=== PATIENT | female | born 1970 | race Hispanic/Latino ===

== ENCOUNTER → 2020-11-09 | Outpatient (CLI) | payer BC | END | disposition home or self-care (01) | LOC: LAB 12:20 → EEVIPCON 12:20 | DX: Z20.822 Contact with and (suspected) exposure to COVID-19 (principal) | CPT/HCPCS: 87635; C9803 ==

== ENCOUNTER 2022-04-26 07:16 | Day surgery (SDC) | payer BC ==
[~2022-04-26] VITALS: Ht 160 cm; Wt 68.0 kg
[~2022-04-26 07:16] MED LIST: ESTROGEN TP; PROGESTERONE PO
[2022-04-26] MEDS ORDERED: PROPOFOL 10 MG/ML 20ML VIAL IV ONE ×2 (07:22→07:38)
[2022-04-26] MEDS ORDERED: LIDOCAINE PF 100MG/5ML (2%) SYRINGE 5ML ONE (07:22)
[2022-04-26] MEDS ORDERED: MIDAZOLAM HCL 1 MG/ML 2ML VIAL ONE (07:22)
[2022-04-26] MEDS ORDERED: 0.9%NACL 1000ML 1,000 ML IV ONE (08:18)
[2022-04-26 08:22] VITALS: BP 130/85
[2022-04-26 08:27] VITALS: BP 99/55
[2022-04-26 08:31] VITALS: BP 98/62
[2022-04-26 08:36] VITALS: BP 96/56
[2022-04-26 08:41] VITALS: BP 99/63
[2022-04-26 08:46] VITALS: BP 96/82
== END 2022-04-26 08:50 | disposition home or self-care (01) ==
LOC: DAH 07:16
PROVIDERS: ATTEND Surgery
DX: K21.9 Gastro-esophageal reflux disease without esophagitis (principal); Z20.822 Contact with and (suspected) exposure to COVID-19; K31.7 Polyp of stomach and duodenum; K29.00 Acute gastritis without bleeding; Z79.899 Other long term (current) drug therapy
CPT/HCPCS: 87426; 84703; 36415; 43239; J7030 ×2; J2001; J2704 ×2; A4620; A4215; A4223; A4657; A7002; A4222; A4221; A4663; A4216; A4606; J2250